=== PATIENT | female | born 1970 | race Caucasian/White ===

== ENCOUNTER 2017-11-03 16:16 | Outpatient (CLI) | payer OTHER | END 2017-11-03 16:17 | disposition home or self-care (01) | LOC: BICMAMMO 16:16 | PROVIDERS: ATTEND Obstetrics & Gynecology | DX: Z12.31 Encounter for screening mammogram for malignant neoplasm of breast (principal) | CPT/HCPCS: 77063; 77067 ==

== ENCOUNTER 2018-05-17 10:29 | Outpatient (CLI) | payer OTHER ==
--- NOTE | 2018-05-17 13:51 | MRI ---
MRI LEFT KNEE WITHOUT CONTRAST: HISTORY: Internal derangement of left knee, N23.92. COMPARISON: None. FINDINGS: MEDIAL MENISCUS: Intact. LATERAL MENISCUS: There is absence of the anterior horn, lateral meniscus, with a horizontal tear of the body. There is some subtle adjacent susceptibility, likely from prior meniscectomy. ACL and PC L are intact. EXTENSOR MECHANISM: Quadriceps tendon, patella, and patellar tendon are all intact. CARTILAGE PATELLOFEMORAL COMPARTMENT: Mild trochlear dysplasia. There are high-grade cartilage fissures of th e central patellar apex and lateral trochlea. No full-thickness cartilage fissuring. MEDIAL COMPARTMENT: Intact. 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 MUSCLES: Muscle signal and bulk is normal. SOFT TISSUES: Unremarkable. IMPRESSION: 1. No evidence of acute internal derangement. 2. Prior meniscectomy changes, anterior horn lateral meniscus with a horizontal tear, nondisplaced, through the lateral meniscal body extending from the free edge through the intermediate and red zone. POS: [facility]
== END 2018-05-17 10:30 | disposition home or self-care (01) ==
LOC: BICMRI 10:29
PROVIDERS: ATTEND Pediatrics Sports Medicine
DX: M23.92 Unspecified internal derangement of left knee (principal); Z98.890 Other specified postprocedural states

== ENCOUNTER 2018-11-09 07:53 | Outpatient (CLI) | payer OTHER ==
--- NOTE | 2018-11-09 08:42 | MMO ---
Bilateral MAMMO Bilat Screen [facility]. CLINICAL HISTORY: Patient is 48 years old and is seen for screening. The patient has no family history of breast cancer. The patient has no personal history of cancer. VIEWS: The views performed were: bilateral craniocaudal with tomosynthesis and bilateral mediolateral oblique with tomosynthesis. FILMS COMPARED: The present examination has been compared to prior imaging studies performed at [facility] on 03/04/2005, 09/23/2010, 09/24/2011, 09/27/2012, 10/04/2013, 10/09/2014, 10/29/2015, 11/04/2016 and 11/03/2017. MAMMOGRAM FINDINGS: There are scattered fibroglandular densities. There are no suspicious masses, suspicious calcifications, or new areas of architectural distortion. IMPRESSION: THERE IS NO MAMMOGRAPHIC EVIDENCE OF MALIGNANCY. A ROUTINE FOLLOW-UP MAMMOGRAM IN 1 YEAR IS RECOMMENDED. THE RESULTS OF THIS EXAM WERE SENT TO THE PATIENT. ACR BI-RADS Category 1 - Negative MAMMOGRAPHY NOTE: 1. A negative mammogram report should not delay a biopsy if a dominant of clinically suspicious mass is present. 2. Approximately 10% to 15% of breast cancers are not detected by mammography. 3. Adenosis and dense breasts may obscure an underlying neoplasm.
== END 2018-11-09 07:54 | disposition home or self-care (01) ==
LOC: BICMAMMO 07:53
PROVIDERS: ATTEND Obstetrics & Gynecology
DX: Z12.31 Encounter for screening mammogram for malignant neoplasm of breast (principal)
CPT/HCPCS: 77063; 77067

== ENCOUNTER → 2019-12-29 | Outpatient (CLI) | payer OTHER ==
--- NOTE | 2019-12-29 16:39 | MMO ---
Bilateral MAMMO Bilat Screen [facility]. CLINICAL HISTORY: Patient is 49 years old and is seen for screening. The patient family history of breast cancer is unknown. The patient has no personal history of cancer. VIEWS: The views performed were: bilateral craniocaudal with tomosynthesis and bilateral mediolateral oblique with tomosynthesis. FILMS COMPARED: The present examination has been compared to prior imaging studies performed at [facility] on 10/29/2015, 11/04/2016, 11/03/2017 and 11/09/2018. This study has been interpreted with the assistance of computer-aided detection. MAMMOGRAM FINDINGS: There are scattered fibroglandular densities. There are no suspicious masses, suspicious calcifications, or new areas of architectural distortion. IMPRESSION: THERE IS NO MAMMOGRAPHIC EVIDENCE OF MALIGNANCY. A ROUTINE FOLLOW-UP MAMMOGRAM IN 1 YEAR IS RECOMMENDED. THE RESULTS OF THIS EXAM WERE SENT TO THE PATIENT. ACR BI-RADS Category 1 - Negative MAMMOGRAPHY NOTE: 1. A negative mammogram report should not delay a biopsy if a dominant of clinically suspicious mass is present. 2. Approximately 10% to 15% of breast cancers are not detected by mammography. 3. Adenosis and dense breasts may obscure an underlying neoplasm. Reported by: LAZARO MURPHY MD Electonically Signed: [id number]
== END ==
LOC: BICMAMMO 16:15
PROVIDERS: ATTEND Obstetrics & Gynecology
DX: Z12.31 Encounter for screening mammogram for malignant neoplasm of breast (principal)
CPT/HCPCS: 77063; 77067

== ENCOUNTER 2020-12-31 11:18 | Outpatient (CLI) | payer OTHER | END 2020-12-31 11:19 | disposition home or self-care (01) | LOC: BICMAMMO 11:18 | PROVIDERS: ATTEND Obstetrics & Gynecology | DX: Z12.31 Encounter for screening mammogram for malignant neoplasm of breast (principal) | CPT/HCPCS: 77063; 77067 ==